=== PATIENT | female | born 1960 | race Caucasian/White ===

== ENCOUNTER 2024-04-11 06:24 | Emergency (ER) | payer BC, SELFPAY ==
[2024-04-11 06:24] VITALS: BMI 26.2
[2024-04-11 06:38] VITALS: BP 137/87
[2024-04-11 07:04] LABS: % Basophils 0.7 % (0-2); % Eosinophils 1.6 % (0-6); % Immature Granulocytes 0.2 % (0-0.5); % Lymphocytes 28.5 % (20.5-51.1); % Monocytes 10.6 % (1.7-9.3); % Neutrophils 58.4 % (42.2-75.2); Absolute Eosinophils 0.1 10^3/uL (0-0.7); Absolute Lymphocytes 1.6 10^3/uL (1.2-3.4); Absolute Monocytes 0.6 10^3/uL (0.1-0.6); Absolute Neutrophils 3.2 10^3/uL (1.4-6.5); Hematocrit 38.2 % (37.0-47.0); Mean Corpuscular Hgb 29.5 pg (27.0-31.0); Mean Corpuscular Volume 86.6 fL (81.0-99.0); Mean Platelet Volume 10.1 fL (7.4-10.4); Nucleated Red Blood Cells % 0 %; Platelet Count 233 10^3/uL (130-400); Red Blood Cell Count 4.41 10^6/uL (4.20-5.40); Red Cell Dist. Width 12.3 % (11.5-14.5); White Blood Cell Count 5.5 10^3/uL (4.8-10.8)
[2024-04-11 07:31] LABS: Troponin I < 0.012 ng/ml
[2024-04-11 07:32] LABS: ALT (SGPT) 24 U/L (0-35); AST (SGOT) 38 U/L (14-36); Albumin 4.4 g/dl (3.5-5.0); Alkaline Phosphatase 83 U/L (38-126); Blood Urea Nitrogen 18 mg/dl (7-17); Calcium 9.3 mg/dl (8.4-10.2); Carbon Dioxide 27 mmol/L (22-30); Chloride 104 mmol/L (98-107); Glucose 99 mg/dl (70-99); Potassium 4.5 mmol/L (3.5-5.1); Sodium 141 mmol/L (135-145); Total Bilirubin 0.4 mg/dl (0.2-1.3); Total Protein 6.8 g/dl (6.3-8.2); eGFR > 60.00
[2024-04-11 08:42] VITALS: BP 138/80
[2024-04-11 09:00] VITALS: BP 132/79
[2024-04-11 09:05] LABS: D-Dimer 0.39 ug/mlFEU (0.00-0.50)
[2024-04-11 09:58] LABS: TSH Reflex To Free T4 4.23 uIU/ml (0.47-4.68)
[2024-04-11 10:00] VITALS: BP 135/89
--- NOTE | 2024-04-11 10:35 | ED.GENMED ---
History of Present Illness
General
Chief Complaint: Breathing Problem
Source: patient and spouse
Exam Limitations: none
Time Seen by Provider: 04/11/24 07:47
Nursing documentation reviewed up to this point in time: agreed with
History of Present Illness
History of Present Illness:
63-year-old female presenting to the emergency department today with concerns of intermittent shortness of breath she has had intermittently over the past few months but had an episode this morning that was worse than usual. Had some chest achiness
as well to time which is since resolved does occasionally have palpitations. Also had some intermittent headache and tingling bilaterally to her hands. Denies any recent trauma surgery immobilization, history of blood clots
Review of Systems
Review of Systems
Allergies reviewed?: Yes
All Other Systems: ROS reviewed and negative except as documented in HPI and ROS
Phy Exam
Physical Exam
Physical Exam:
GENERAL: Alert , in no apparent distress
EYE: pupils equal and reactive
NECK: Supple, no significant adenopathy.
ENT: o/p clr, mmm.
CARDIAC: Regular rate and rhythm .
LUNGS: Clear breath sounds bilaterally, no acute respiratory distress, no wheezes/rales/rhonchi
ABDOMEN: Soft, without focal tenderness, no r/g, no cvat
NEUROLOGICAL: Alert and oriented, no focal neuro deficits
SKIN: Warm and dry, skin intact.
MUSCULOSKELETAL: No edema, well perfused.
PSYCH: Normal and appropriate interaction.
Scores
Heart Failure Risk
Heart Failure Risk Score: Not Applicable
Course
Orders/Labs/Results
Orders:
Orders
04/11/24 06:51
ECG [Electrocardiogram (*1)] Urgent
Reason for Study: Chest Pain
04/11/24 06:52
EKG- Treatment ONCE
04/11/24 06:57
Complete Blood Count/With Diff Urgent
Comprehensive Metabolic Panel Urgent
TSH Reflex To Free T4 Urgent
Comment: ADD ON
Troponin I Urgent
04/11/24 08:04
Cardiac Monitoring- Treatment ONCE
Chest [CR Chest - 2 Views ] Urgent
Comment:
Reason For Exam: cp
04/11/24 08:05
Add On- LAB Urgent
Tests Added?: tsh free t4
04/11/24 08:34
D-Dimer Urgent
04/11/24 09:32
EKG [Electrocardiogram (*1)] Urgent
Reason for Study: Chest Pain
EKG- Treatment ONCE
04/11/24 09:47
Troponin I Urgent
04/11/24 10:41
Aspirin 325 mg PO NOW STA
Abnormal Lab Results
04/11/24
06:57
Monocytes % 10.6 H %
(1.7-9.3)
BUN 18 H mg/dl
(7-17)
AST 38 H U/L
(14-36)
04/11/24 06:57
04/11/24 06:57
Vital Signs
Initial and Last Documented VS:
Initial Vital Signs
Temp Pulse Resp BP Pulse Ox
98.2 F 72 16 137/87 98
04/11/24 06:38 04/11/24 06:38 04/11/24 06:38 04/11/24 06:38 04/11/24 06:38
Last Documented Vital Signs
Temp Pulse Resp BP Pulse Ox
98.2 F 66 18 135/89 97
04/11/24 06:38 04/11/24 10:00 04/11/24 10:00 04/11/24 10:00 04/11/24 10:00
MDM/Problems Addressed
MDM/Problems Addressed:
63-year-old female very well-appearing no distress here normal vital signs in no distress concern with an episode of shortness of breath this morning also had some palpitations had a funny sensation to the left chest denies any ongoing pain on
arrival here EKG does show PVCs but no ischemic changes or significant additional arrhythmia. Labs unremarkable initial troponin negative. Chest x-ray normal. EKG repeated without any changes additional troponin negative as well. Patient low
risk for ACS at this time advised for close outpatient follow-up with cardiology as she has not seen a pattern vault clerk in the past. Return precautions given. Also given information for neurology follow-up as she claims that she has had intermittent
headaches over the past few months. No neurologic symptoms here.
*Critical Care Note
Total Time (30-74mins, 75-104mins- exclusive of procedures): Not Applicable
ED Attending Note
-
Portions of this chart may have been created with voice recognition software.� Occasional wrong word or��sound alike� substitutions may have occurred due to the inherent limitations of voice recognition software.
Discharge Plan
Departure
Patient Disposition: Home (Routine Discharge)
Date of Disposition: 04/11/24
Time of Disposition: 11:12
Patient with high blood pressure during this ER visit?: No
Condition: Good
Covid-19: Not Applicable
Discharge Problem:
Chest pain, Palpitations
Instructions: Chest Pain DCA Follow Up
Referrals:
PRIVATE,PHYSICIAN [Family Provider] -
Briana Person, DO [Active] - Follow up in 5-7 days
Activity Restrictions/Additional Instructions:
You came to the emergency department today with concerns of shortness of breath and a chest sensation. Here he had a reassuring assessment and no signs of emergent pathology. Please follow closely with the pattern vault clerk and neurologist for further
assessment. Return to the emergency department for any worsening, new or concerning symptoms.
Interventions
Interventions:
*Risk Screen - Suicide Last Done: 04/11/24 08:49
*General Assessment Last Done: 04/11/24 08:49
*Neglect/Abuse Screening Last Done: 04/11/24 08:49
*ED COVID-19 Vaccine History Last Done: 04/11/24 08:49
ED- Cardiac Assessment Last Done: 04/11/24 08:49
ED- Pulmonary Assessment Last Done: 04/11/24 08:49
Discharge Date and Time
Print Language: PORTUGUESE
[2024-04-11 10:40] LABS: Troponin I < 0.012 ng/ml
[2024-04-11 11:00] VITALS: BP 124/83
[2024-04-11] MEDS: ASPIRIN 325 MG PO (11:17)
== END 2024-04-11 11:27 | disposition home or self-care (01) ==
LOC: EMR 06:24
PROVIDERS: Physician Assistant; EMERGENCY PHYSICIAN Student in an Organized Health Care Education/Training Program
DX: R07.9 Chest pain, unspecified (principal); R00.2 Palpitations
CPT/HCPCS: 71046; 80053; 84443; 84484; 85025; 85379; 93005; 99285

== ENCOUNTER 2024-05-06 05:11 | Emergency (ER) | payer BC, SELFPAY ==
[2024-05-06 05:12] VITALS: BP 113/76
[2024-05-06 05:30] VITALS: BP 128/77
[2024-05-06 06:00] VITALS: BP 132/107
--- NOTE | 2024-05-06 06:34 | ED.GENMED ---
History of Present Illness
General
Chief Complaint: Heart Rate Problem
Source: patient
Time Seen by Provider: 05/06/24 06:00
History of Present Illness
History of Present Illness:
63-year-old female presents to the emergency room complaining of feeling lack of energy, lightheaded at times. Last night she was measuring her blood pressure and the blood pressure cuff was getting her readings suggesting her heart rate was very
low, as low as the 30s. Patient has been feeling unwell for the past couple months. She has been evaluated by her primary care doctor. She has been diagnosed with frequent PVCs. She has a stress echo scheduled for tomorrow and a cardiology
appointment on Monday. Patient states she gets a funny feeling in her chest from time to time. She denies any discomfort now but it has been ongoing for the past couple months. No difficulty performing daily activities.
Phy Exam
Physical Exam
Physical Exam:
General: Awake, Alert, Oriented X3. No acute distress.
Vitals: unremarkable
Head: Atraumatic
Eyes: Pupils equal, EOMI
Throat: Airway intact, no exudates
Neck: Trachea midline
Lungs: Clear and equal b/l
Heart: Regular rate, occasional ectopy, no murmurs
Abd: Soft, Nontender, No pulsatile mass
Neuro: Nonfocal
Skin: Warm, dry, no rash
Extremities: pulses equal b/l, no edema
Course
Orders/Labs/Results
Orders:
Orders
05/06/24 05:14
ECG [Electrocardiogram (*1)] Urgent
Reason for Study: Abdominal Pain
EKG- Treatment ONCE
05/06/24 06:49
Basic Metabolic Panel Urgent
Complete Blood Count/No Diff Urgent
Magnesium Urgent
Troponin I Urgent
Abnormal Lab Results
05/06/24
06:49
RBC 4.15 L 10^6/uL
(4.20-5.40)
BUN 19 H mg/dl
(7-17)
Glucose 101 H mg/dl
(70-99)
05/06/24 06:49
05/06/24 06:49
Vital Signs
Initial and Last Documented VS:
Initial Vital Signs
Temp Pulse Resp BP Pulse Ox
97.8 F 64 18 113/76 100
05/06/24 05:12 05/06/24 05:12 05/06/24 05:12 05/06/24 05:12 05/06/24 05:12
Last Documented Vital Signs
Temp Pulse Resp BP Pulse Ox
97.8 F 62 14 124/72 98
05/06/24 05:12 05/06/24 08:15 05/06/24 08:15 05/06/24 08:00 05/06/24 08:15
MDM/Problems Addressed
Differential Diagnosis Includes:
Dehydration, anemia,pvc.s
MDM/Problems Addressed:
Patient presents with concern that her main slow that she has palpitations. I believe the measurements she obtained at home do not reflect her actual heart rate over the course of the minute. On the monitor the patient has maintained normal heart
rate. She has PVCs with compensatory pauses. Appears unremarkable. Patient stable for discharge and outpatient follow-up
*Pulse Oximetry
Patient hypoxic: no
*EKG
Interpreted by ED Provider?: Yes
Heart Rate: 61
Rate: normal
Rhythm: sinus and PVC's
[place]: normal axis
Interval: normal interval
QRS Pattern: normal QRS
Ischemia: no ischemia
*Scaffolder Interpretation
Rate: normal
Interpretation: abnormal
Rhythm: sinus and PVC's
*Critical Care Note
Total Time (30-74mins, 75-104mins- exclusive of procedures): Not Applicable
ED Attending Note
-
Portions of this chart may have been created with voice recognition software.� Occasional wrong word or��sound alike� substitutions may have occurred due to the inherent limitations of voice recognition software.
Discharge Plan
Departure
Patient Disposition: Home (Routine Discharge)
Date of Disposition: 05/06/24
Time of Disposition: 07:52
Patient with high blood pressure during this ER visit?: No
Condition: Good
Discharge Problem:
Palpitations, Frequent PVCs
Referrals:
PRIVATE,PHYSICIAN [Family Provider] -
Activity Restrictions/Additional Instructions:
Please follow up with the stress test and cardiology appointment that you have scheduled.
Interventions
Interventions:
*Risk Screen - Suicide Last Done: 05/06/24 05:12
*General Assessment Last Done: 05/06/24 05:12
*Neglect/Abuse Screening Last Done: 05/06/24 05:12
ED- Fall Risk Assessment Last Done: 05/06/24 07:33
*ED COVID-19 Vaccine History Last Done: 05/06/24 05:30
*Nursing Disposition Last Done: 05/06/24 08:34
ED- Cardiac Assessment Last Done: 05/06/24 05:33
ED- Pulmonary Assessment Last Done: 05/06/24 05:33
Discharge Date and Time
Discharge Date/Time: 05/06/24 08:35
Print Language: MAORI
[2024-05-06 06:57] LABS: Hematocrit 37.1 % (37.0-47.0); Hemoglobin 12.4 g/dL (12.0-16.0); Mean Corp Hgb Conc. 33.4 g/dL (33.0-37.0); Mean Corpuscular Hgb 29.9 pg (27.0-31.0); Mean Corpuscular Volume 89.4 fL (81.0-99.0); Mean Platelet Volume 10.1 fL (7.4-10.4); Platelet Count 213 10^3/uL (130-400); Red Blood Cell Count 4.15 10^6/uL (4.20-5.40); Red Cell Dist. Width 12.6 % (11.5-14.5)
[2024-05-06 07:00] VITALS: BP 127/69
[2024-05-06 07:09] LABS: Blood Urea Nitrogen 19 mg/dl (7-17); Calcium 9.2 mg/dl (8.4-10.2); Carbon Dioxide 25 mmol/L (22-30); Chloride 105 mmol/L (98-107); Glucose 101 mg/dl (70-99); Potassium 4.5 mmol/L (3.5-5.1); Sodium 141 mmol/L (135-145); eGFR > 60.00
[2024-05-06 07:20] LABS: Troponin I < 0.012 ng/ml
[2024-05-06 07:33] VITALS: BMI 27.9
[2024-05-06 08:00] VITALS: BP 124/72
== END 2024-05-06 08:35 | disposition home or self-care (01) ==
LOC: EMR 05:11
PROVIDERS: EMERGENCY PHYSICIAN Emergency Medicine
DX: R00.2 Palpitations (principal); I49.3 Ventricular premature depolarization
CPT/HCPCS: 99284; 80048; 83735; 84484; 85027; 93005

== ENCOUNTER → 2024-05-08 12:37 | Outpatient (REF) | payer BC, SELFPAY | LOC: RAD 12:37 | PROVIDERS: ATTENDING PHYSICIAN Internal Medicine | DX: I49.9 Cardiac arrhythmia, unspecified (principal); I25.84 Coronary atherosclerosis due to calcified coronary lesion; E78.00 Pure hypercholesterolemia, unspecified | CPT/HCPCS: 93880 ==

== ENCOUNTER → 2024-05-27 14:41 | Outpatient (REF) | payer BC, SELFPAY | LOC: RCS 14:41 | PROVIDERS: ATTENDING PHYSICIAN Internal Medicine Cardiovascular Disease; FAMILY PHYSICIAN Internal Medicine | DX: R00.2 Palpitations (principal); R07.89 Other chest pain; R68.89 Other general symptoms and signs; R53.83 Other fatigue | CPT/HCPCS: 93306 ==